=== PATIENT | male | born 1960 | race Caucasian/White ===

== ENCOUNTER → 2018-08-01 | Outpatient (CLI) | payer OTHER ==
[~2018-08-01] MED LIST: ALLEGRA30 MG; ALLOPURINOL 10100 M1 PO; OMEPRAZOLE20 M2 PO; UNICOMPLEX M TA1 TA1 PO; ZOFRAN 4 MG ORAL4 M1 DIS
--- NOTE | 2018-08-02 07:56 | EKG ---
[place] [address] [facility] [place] [address] ELECTROCARDIOGRAM REPORT Name: CLARITA ROMANO Room #: [facility]#: [id number] ������������������ Admission: 08/01/18 ������������������ Attend Phys: Lena Betts MD Discharge: ������������������ Date of : 60 Report #: [id number] ����������������������������������������������������������������� [id number] THIS REPORT FOR: //name// [facility] Test Date: 2018-08-01 Test Time: 08:55:32 Pat Name: CLARITA ROMANO Department: Room: Gender: M Climatologist: sary : 1960 Requested By: Lena Betts Order Number: [id number] MD: Jason Hogan Measurements Intervals [place] Rate: 65 P: 4 LA: 177 QRS: 34 QRSD: 101 T: 30 QT: 408 QTc: 425 Interpretive Statements Sinus rhythm Normal tracing Compared to ECG 08/15/2010 01:49:48 ST and T wave abnormality is no longer present Electronically Signed On 08-02-2018 7:56:38 CDT by Jason Hogan [email or web address] ��������������������������������������������� <ELECTRONICALLY SIGNED> ���������������������������������������� By: Jason Hogan MD, [facility] ��������������������������������������������� 08/02/18 [id number] [phone] Jason Hogan MD, [facility] /EPI
== END | disposition home or self-care (01) ==
LOC: LITH 08:14
DX: N20.0 Calculus of kidney (principal); M10.9 Gout, unspecified; K21.9 Gastro-esophageal reflux disease without esophagitis; G47.30 Sleep apnea, unspecified; Z98.41 Cataract extraction status, right eye; Z98.890 Other specified postprocedural states; Z88.8 Allergy status to other drugs, medicaments and biological substances; Z79.899 Other long term (current) drug therapy